=== PATIENT | female | born 1960 | race Caucasian/White ===

== ENCOUNTER 2024-09-20 14:10 | Emergency (ER) | payer OTHER ==
[~2024-09-20] VITALS: Ht 167.6 cm; Wt 103.9 kg
[2024-09-20 14:22] VITALS: TEMP 98.4
[2024-09-20 18:26] VITALS: BP 160/89; PULSE 98; RESP 18; O2SAT 96
[2024-09-20] MEDS ORDERED: AZIT-164 PO (18:30)
[2024-09-20] MEDS ORDERED: BENZ-38 PO (18:30)
[2024-09-20] MEDS ORDERED: ALBU18HF2 INH (18:30)
== END 2024-09-20 18:33 | disposition home or self-care (01) ==
LOC: ER 14:10
DX: J40 Bronchitis, not specified as acute or chronic (principal); Z79.899 Other long term (current) drug therapy; Z20.822 Contact with and (suspected) exposure to COVID-19
CPT/HCPCS: 36415; 71045; 87502; 87503; 87811; 99284